=== PATIENT | male | born 1995 | race Caucasian/White ===

== ENCOUNTER 2019-04-07 03:33 | Emergency (ER) | payer OTHER ==
[~2019-04-07] VITALS: Ht 172.7 cm; Wt 82.6 kg
--- NOTE | 2019-04-07 04:00 | NUR ---
Patient presents to ER with c/o of flu-like symptoms, nausea and diarrhea x 2 days. Placed in Bed 2A, patient in no acute distress. Dr. Vázquez at bedside examining patient upon arrival. Patient's mother at bedside.
[2019-04-07] MEDS ORDERED: OSELTAMIVIR PHOSPHATE 75 MG CAPSULE PO ONE (04:45)
[2019-04-07] MEDS ORDERED: OSELTAMIVIR PHOSPHATE 75 MG CAPSULE ONE (04:49)
--- NOTE | 2019-04-07 04:54 | NUR ---
Patient for discharge. DC instructions and prescriptions given and reviewed with patient, verbalized understanding. Left ER in stable condition.
== END 2019-04-07 04:53 | disposition home or self-care (01) ==
LOC: ER 03:44
DX: J11.1 Influenza due to unidentified influenza virus with other respiratory manifestations (principal); R11.2 Nausea with vomiting, unspecified; R19.7 Diarrhea, unspecified; J45.909 Unspecified asthma, uncomplicated; Z79.899 Other long term (current) drug therapy
CPT/HCPCS: 87400; A4663

== ENCOUNTER 2020-12-05 17:28 | Emergency (ER) | payer OTHER ==
[~2020-12-05] VITALS: Ht 172.7 cm; Wt 81.6 kg
[~2020-12-05 17:28] MED LIST: ALBU8HFA4 INH
--- NOTE | 2020-12-05 17:53 | NUR ---
PATIENT WAS MSE BY DR GRIMES IN ROOM 05A.
--- NOTE | 2020-12-05 18:34 | NUR ---
Patient discharged to home in stable condition. Written and verbal after care instructions given. Patient verbalizes understanding of instructions. Stressed follow up or return to ER for worsening s/s.
[2020-12-05 18:35] VITALS: BP 128/71
== END 2020-12-05 18:35 | disposition home or self-care (01) ==
LOC: ER 17:32
DX: S00.01XA Abrasion of scalp, initial encounter (principal); V43.52XA Car driver injured in collision with other type car in traffic accident, initial encounter; Y92.9 Unspecified place or not applicable; R07.9 Chest pain, unspecified; J45.909 Unspecified asthma, uncomplicated
CPT/HCPCS: 71045; A4663